=== PATIENT | male | born 1980 | race American Indian/Alaskan Native ===

== ENCOUNTER 2022-02-09 13:37 | Emergency (ER) | payer MEDICAID ==
--- NOTE | 2022-02-09 14:36 | Event Note ---
ED Screening Note ED Screening Note: sent from halfway "because eyes rolled back in my head since last Sunday. " no trip sheet or hx given denies substance use home psych meds per caregiver no hi no si no av halluc coooperative This initial assessment/diagnostic orders/clinical plan/treatment(s) is/are subject to change based on patients health status, clinical progression and re- assessment by fellow clinical providers in the ED. Further treatment and workup at subsequent clinical providers discretion. Patient/guardian urged not to elope from the ED as their condition may be serious if not clinically assessed and managed. Initial orders include: mhe ekg/qt eval will need to call halfway for more info
[2022-02-09 16:32] LABS: Basophils % (Auto) 1.2 % (0.0-1.8); Eosinophils # (Auto) 0.1 K/mm3 (0.0-0.4); Eosinophils % (Auto) 3.7 % (0.0-4.3); Hematocrit 41.2 % (35.5-45.6); Hemoglobin 13.3 gm/dl (11.8-15.2); Lymphocytes # (Auto) 1.1 K/mm3 (1.2-5.4); Lymphocytes % (Auto) 28.9 % (13.4-35.0); Mean Corpuscular HGB Conc 32 % (32-34); Mean Corpuscular Volume 91 fl (84-94); Monocytes # (Auto) 0.4 K/mm3 (0.0-0.8); Monocytes % (Auto) 9.2 % (0.0-7.3); Platelet Count 363 K/mm3 (140-440); Red Blood Count 4.51 M/mm3 (3.65-5.03); Red Cell Distribution Width 12.8 % (13.2-15.2)
[2022-02-09 16:54] LABS: Alanine Aminotransferase 11 units/L (7-56); Albumin 4.4 g/dL (3.9-5); BUN/Creatinine Ratio 6; Blood Urea Nitrogen 6 mg/dL (9-20); Calcium 9.1 mg/dL (8.4-10.2); Hemolysis Index 6
[2022-02-09 17:24] LABS: Creatine Kinase MB < 1.0 ng/mL (0.0-4.0)
--- NOTE | 2022-02-09 22:57 | Emergency Department Report ---
- General Chief complaint: Weakness Stated complaint: WEAKNESS Time Seen by Provider: 02/09/22 21:20 Source: patient Mode of arrival: Ambulatory Limitations: No Limitations - History of Present Illness Initial comments: pt presents to ed with gen weakness , pt reports his eyes rolls back in to his head no si or hi MD Complaint: generalized weakness -: Gradual Location: generalized Consistency: intermittent Improves with: none Associated Symptoms: denies: denies other symptoms, chest pain, confusion, dark stools, easy bruising, fever/chills, headaches, loss of appetite, rash, shortness of breath, syncope - Related Data Home Medications Medication Instructions Recorded Confirmed Last Taken FLUoxetine HCL [FLUoxetine] 40 mg PO QDAY 04/17/15 06/29/15 04/17/15 Ranitidine HCl [Ranitidine] 150 mg PO BID 04/17/15 06/29/15 04/17/15 ARIPiprazole [Abilify TAB] 10 mg PO QHS 06/29/15 06/29/15 Unknown Benztropine [Cogentin] 1 mg PO DAILY 06/29/15 06/29/15 Unknown Pantoprazole [Protonix] 40 mg PO DAILY 06/29/15 06/29/15 Unknown diphenhydrAMINE [Benadryl CAP] 50 mg PO QHS 06/29/15 06/29/15 Unknown Allergies Allergy/AdvReac Type Severity Reaction Status Date / Time No Known Allergies Allergy Verified 04/18/15 00:41 ED Review of Systems ROS: Stated complaint: WEAKNESS Other details as noted in HPI Constitutional: denies: chills, fever Eyes: denies: eye pain, eye discharge, vision change ENT: denies: ear pain, throat pain Respiratory: denies: cough, shortness of breath, wheezing Cardiovascular: denies: chest pain, palpitations Endocrine: no symptoms reported Gastrointestinal: denies: abdominal pain, nausea, diarrhea Genitourinary: denies: urgency, dysuria Musculoskeletal: denies: back pain, joint swelling, arthralgia Skin: denies: rash, lesions Neurological: denies: headache, weakness, paresthesias Psychiatric: denies: anxiety, depression Hematological/Lymphatic: denies: easy bleeding, easy bruising ED Past Medical Hx - Past Medical History Previous Medical History?: No Hx Hypertension: No Hx CVA: No Hx Psychiatric Treatment: (Not able to obtain history) Hx Asthma: Yes - Social History Smoking Status: Never Smoker Substance Use Type: None - Medications Home Medications: Home Medications Medication Instructions Recorded Confirmed Last Taken Type FLUoxetine HCL [FLUoxetine] 40 mg PO QDAY 04/17/15 06/29/15 04/17/15 History Ranitidine HCl [Ranitidine] 150 mg PO BID 04/17/15 06/29/15 04/17/15 History ARIPiprazole [Abilify TAB] 10 mg PO QHS 06/29/15 06/29/15 Unknown History Benztropine [Cogentin] 1 mg PO DAILY 06/29/15 06/29/15 Unknown History Pantoprazole [Protonix] 40 mg PO DAILY 06/29/15 06/29/15 Unknown History diphenhydrAMINE [Benadryl CAP] 50 mg PO QHS 06/29/15 06/29/15 Unknown History ED Physical Exam - General Limitations: No Limitations General appearance: alert, in no apparent distress - Head Head exam: Present: atraumatic, normocephalic - Eye Eye exam: Present: normal appearance - ENT ENT exam: Present: mucous membranes moist - Neck Neck exam: Present: normal inspection - Respiratory Respiratory exam: Present: normal lung sounds bilaterally. Absent: respiratory distress - Cardiovascular Cardiovascular Exam: Present: regular rate, normal rhythm. Absent: systolic murmur, diastolic murmur, rubs, gallop - GI/Abdominal GI/Abdominal exam: Present: soft, normal bowel sounds - Rectal Rectal exam: Present: deferred - Extremities Exam Extremities exam: Present: normal inspection - Back Exam Back exam: Present: normal inspection - Neurological Exam Neurological exam: Present: alert, oriented X3 - Psychiatric Psychiatric exam: Present: normal affect, normal mood - Skin Skin exam: Present: warm, dry, intact, normal color. Absent: rash ED Course Vital Signs 02/09/22 13:42 Temperature 97.8 F Pulse Rate 86 Respiratory 16 Rate Blood Pressure 130/90 [Left] O2 Sat by Pulse 98 Oximetry ED Medical Decision Making - Lab Data Result diagrams: 02/09/22 16:05 02/09/22 16:05 - Medical Decision Making work up neg , candice any si ro hi, vss no distress Critical care attestation.: If time is entered above; I have spent that time in minutes in the direct care of this critically ill patient, excluding procedure time. ED Disposition Clinical Impression: Weakness Disposition: 01 HOME / SELF CARE / HOMELESS Is pt being admited?: No Does the pt Need Aspirin: No Condition: Stable Referrals: CHADD CAIN MD [Primary Care Provider] - 3-5 Days
[2022-02-09 23:06] VITALS: BP 129/90
[2022-02-09 23:22] LABS: Mucus,Urine 3+ /HPF
[2022-02-09 23:23] LABS: Amphetamine Screen,Urine PRESUMPTIVE NEGATIVE; Benzodiazepines Screen,Urine PRESUMPTIVE NEGATIVE; Cannabinoid Screen,Urine PRESUMPTIVE NEGATIVE; Cocaine Screen,Urine PRESUMPTIVE NEGATIVE; Methadone Screen,Urine PRESUMPTIVE NEGATIVE; Opiate Screen,Urine PRESUMPTIVE NEGATIVE
[2022-02-09 23:56] LABS: Bilirubin,Urine Negative (Negative); Blood,Urine Negative (Negative); Color,Urine Amber (Yellow)
[2022-02-09 23:57] LABS: Protein,Urine <15 mg/dL mg/dL (Negative); RBC,Urine < 1.0 /HPF (0.0-6.0); Urobilinogen,Urine < 2.0 mg/dL (<2.0)
--- NOTE | 2022-02-10 11:43 | Electrocardiograph Report ---
[facility] Test Date: 2022-02-09 Test Time: 21:11:27 Pat Name: JERRY MONTANEZ Department: Room: Gender: M Director Environmental: KETAN : 1980 Requested By: BOBBY SCHWARTZ Order Number: [id number] Reading MD: Felipe hSell Measurements Intervals [place] Rate: 80 P: 39 ND: 138 QRS: 2 QRSD: 88 T: 35 QT: 372 QTc: 429 Interpretive Statements Sinus rhythm No previous ECG available for comparison Electronically Signed On 02-10-2022 11:42:41 EDT by Felipe Shell
== END 2022-02-09 23:06 | disposition home or self-care (01) ==
LOC: ED 13:37
DX: R53.1 Weakness (principal); J45.909 Unspecified asthma, uncomplicated; Z79.899 Other long term (current) drug therapy
CPT/HCPCS: 36415; 80053; 80307; 80320; 81001; 82550; 82553; 85025; 93005; 99283; G0480

== ENCOUNTER 2022-02-21 11:09 | Emergency (ER) | payer MEDICARE, MEDICAID ==
[2022-02-21 20:04] VITALS: BP 120/80
[2022-02-21 21:15] LABS: Basophils # (Auto) 0.1 K/mm3 (0.0-0.1); Basophils % (Auto) 1.4 % (0.0-1.8); Eosinophils # (Auto) 0.2 K/mm3 (0.0-0.4); Eosinophils % (Auto) 3.6 % (0.0-4.3); Hematocrit 38.4 % (35.5-45.6); Hemoglobin 12.8 gm/dl (11.8-15.2); Lymphocytes # (Auto) 1.3 K/mm3 (1.2-5.4); Lymphocytes % (Auto) 28.2 % (13.4-35.0); Mean Corpuscular HGB Conc 33 % (32-34); Mean Corpuscular Volume 91 fl (84-94); Monocytes # (Auto) 0.5 K/mm3 (0.0-0.8); Monocytes % (Auto) 10.6 % (0.0-7.3); Platelet Count 301 K/mm3 (140-440); Red Blood Count 4.21 M/mm3 (3.65-5.03); Red Cell Distribution Width 13.2 % (13.2-15.2)
[2022-02-21 21:17] LABS: Bilirubin,Urine NEG (Negative); Blood,Urine NEG (Negative); Color,Urine Yellow (Yellow); Mucus,Urine FEW /HPF; Protein,Urine <15 mg/dL mg/dL (Negative); RBC,Urine < 1.0 /HPF (0.0-6.0); Urobilinogen,Urine < 2.0 mg/dL (<2.0); WBC,Urine < 1.0 /HPF (0.0-6.0)
[2022-02-21 21:24] LABS: Amphetamine Screen,Urine Negative; Benzodiazepines Screen,Urine Negative; Cannabinoid Screen,Urine Negative; Cocaine Screen,Urine Negative; Methadone Screen,Urine Negative; Opiate Screen,Urine Negative
[2022-02-21 21:34] LABS: Alanine Aminotransferase 10 units/L (7-56); Albumin 4.3 g/dL (3.9-5); BUN/Creatinine Ratio 4; Blood Urea Nitrogen 4 mg/dL (9-20); Calcium 9.7 mg/dL (8.4-10.2); Hemolysis Index 7
--- NOTE | 2022-02-21 22:41 | Ultrasound Report ---
ULTRASOUND ABDOMEN, LIMITED (RIGHT UPPER QUADRANT) INDICATION / CLINICAL INFORMATION: epigastric pain. COMPARISON: None available. FINDINGS: PANCREAS: Visualized portion shows no significant abnormality. LIVER: No significant abnormality. GALLBLADDER: No significant abnormality. BILE DUCTS: No significant abnormality. Common bile duct measures 3 mm. FREE FLUID: None. ADDITIONAL FINDINGS: None. IMPRESSION: 1. No significant sonographic abnormality of the right upper quadrant. Signer Name: Joshua Powell MD Signed: 02/21/2022 10:36 PM Workstation Name: [id number]
--- NOTE | 2022-02-21 22:48 | XRay Report ---
XR abd series w cxr 1V INDICATION / CLINICAL INFORMATION: epigastric pain. COMPARISON: None available. FINDINGS: SUPPORT DEVICES: None. HEART / MEDIASTINUM: No significant abnormality. LUNGS / PLEURA: Lungs are clear. Costophrenic sulci are sharp. No pneumothorax. ABDOMEN: Nonobstructive bowel gas pattern. No pneumoperitoneum. ADDITIONAL FINDINGS: No significant additional findings. IMPRESSION: 1. No acute findings. 2. Nonobstructive bowel gas pattern. Signer Name: Joshua Powell MD Signed: 02/21/2022 10:43 PM Workstation Name: [id number]
--- NOTE | 2022-02-21 23:18 | Emergency Department Report ---
ED General Adult HPI - General Chief complaint: Psych Stated complaint: EYES ROLLING IN BACK OF HEAD Time Seen by Provider: 02/21/22 19:22 Source: patient Mode of arrival: Ambulatory Limitations: No Limitations - History of Present Illness Initial comments: Patient presents from his outpatient psych appointment with complaints of middle, upper abdominal pain, achy, non radiating, 5/10, not worsened or relieved by anything. Denies nausea, vomiting. Last BM was today and formed. Endorses flatulence. Denies dysuria, frequency, urgency. States it makes his eyes feel like they are rolling back. Denies suicidal and homicidal ideations, intent or plan. Denies visual and auditory hallucinations. Severity scale (0 -10): 0 - Related Data Home Medications Medication Instructions Recorded Confirmed Last Taken FLUoxetine HCL [FLUoxetine] 40 mg PO QDAY 04/17/15 06/29/15 04/17/15 Ranitidine HCl [Ranitidine] 150 mg PO BID 04/17/15 06/29/15 04/17/15 ARIPiprazole [Abilify TAB] 10 mg PO QHS 06/29/15 06/29/15 Unknown Benztropine [Cogentin] 1 mg PO DAILY 06/29/15 06/29/15 Unknown Pantoprazole [Protonix] 40 mg PO DAILY 06/29/15 06/29/15 Unknown diphenhydrAMINE [Benadryl CAP] 50 mg PO QHS 06/29/15 06/29/15 Unknown Allergies Allergy/AdvReac Type Severity Reaction Status Date / Time No Known Allergies Allergy Verified 02/21/22 11:22 ED Review of Systems ROS: Stated complaint: EYES ROLLING IN BACK OF HEAD Other details as noted in HPI Comment: All other systems reviewed and negative Constitutional: denies: chills, fever ED Past Medical Hx - Past Medical History Hx Hypertension: No Hx CVA: No Hx Psychiatric Treatment: (Not able to obtain history) Hx Asthma: Yes - Social History Smoking Status: Never Smoker Substance Use Type: None - Medications Home Medications: Home Medications Medication Instructions Recorded Confirmed Last Taken Type FLUoxetine HCL [FLUoxetine] 40 mg PO QDAY 04/17/15 06/29/15 04/17/15 History Ranitidine HCl [Ranitidine] 150 mg PO BID 04/17/15 06/29/15 04/17/15 History ARIPiprazole [Abilify TAB] 10 mg PO QHS 06/29/15 06/29/15 Unknown History Benztropine [Cogentin] 1 mg PO DAILY 06/29/15 06/29/15 Unknown History Pantoprazole [Protonix] 40 mg PO DAILY 06/29/15 06/29/15 Unknown History diphenhydrAMINE [Benadryl CAP] 50 mg PO QHS 06/29/15 06/29/15 Unknown History ED Physical Exam - General Limitations: No Limitations General appearance: alert, in no apparent distress - Head Head exam: Present: atraumatic, normocephalic - Eye Eye exam: Present: PERRL, EOMI - ENT ENT exam: Present: mucous membranes moist, other (airway patent) - Neck Neck exam: Present: other (supple; no JVD) - Respiratory Respiratory exam: Present: other (good airentry, nml I:E, CTAB; no use of WILLI) - Cardiovascular Cardiovascular Exam: Present: regular rate, normal rhythm. Absent: rubs, gallop - GI/Abdominal GI/Abdominal exam: Present: soft, normal bowel sounds. Absent: distended, tenderness, guarding - Extremities Exam Extremities exam: Present: full ROM. Absent: tenderness - Back Exam Back exam: Present: full ROM. Absent: tenderness - Neurological Exam Neurological exam: Present: alert, oriented X3, CN II-XII intact. Absent: motor sensory deficit - Psychiatric Psychiatric exam: Present: normal affect, other (no hallucinations; no obvious delusions). Absent: homicidal ideation, suicidal ideation - Skin Skin exam: Present: warm, dry ED Course Vital Signs 02/21/22 02/21/22 02/21/22 11:19 20:02 22:35 Temperature 97.6 F 98.5 F Pulse Rate 89 70 Respiratory 16 16 Rate Blood Pressure 114/81 Blood Pressure 120/80 [Left] O2 Sat by Pulse 99 99 98 Oximetry ED Medical Decision Making - Lab Data Result diagrams: 02/21/22 20:57 02/21/22 20:57 Laboratory Tests 02/21/22 02/21/22 02/21/22 20:48 20:48 20:57 WBC 4.8 RBC 4.21 Hgb 12.8 Hct 38.4 MCV 91 MCH 30 MCHC 33 RDW 13.2 Plt Count 301 Lymph % (Auto) 28.2 [place] % (Auto) 10.6 H Eos % (Auto) 3.6 Baso % (Auto) 1.4 Lymph # (Auto) 1.3 [place] # (Auto) 0.5 Eos # (Auto) 0.2 Baso # (Auto) 0.1 Seg Neutrophils % 56.2 Seg Neutrophils # 2.7 Sodium Potassium Chloride Carbon Dioxide Anion Gap BUN Creatinine Estimated GFR BUN/Creatinine Ratio Glucose Calcium Total Bilirubin AST ALT Alkaline Phosphatase Total Protein Albumin Albumin/Globulin Ratio Lipase Urine Color Yellow Urine Turbidity Clear Urine pH 6.0 Ur Specific [place] 1.016 Urine Protein <15 mg/dl Urine Glucose (UA) Neg Urine Ketones Neg Urine Blood Neg Urine Nitrite Neg Urine Bilirubin Neg Urine Urobilinogen < 2.0 Ur Leukocyte Esterase Neg Urine WBC (Auto) < 1.0 Urine RBC (Auto) < 1.0 Urine Mucus Few Salicylates Urine Opiates Screen Negative Urine Methadone Screen Negative Acetaminophen Ur Barbiturates Screen Negative Ur Phencyclidine Scrn Negative Ur Amphetamines Screen Negative U Benzodiazepines Scrn Negative Urine Cocaine Screen Negative U Marijuana (THC) Screen Negative Drugs of Abuse Note Disclamer Plasma/Serum Alcohol 02/21/22 02/21/22 02/21/22 20:57 20:57 20:57 WBC RBC Hgb Hct MCV MCH MCHC RDW Plt Count Lymph % (Auto) [place] % (Auto) Eos % (Auto) Baso % (Auto) Lymph # (Auto) [place] # (Auto) Eos # (Auto) Baso # (Auto) Seg Neutrophils % Seg Neutrophils # Sodium 138 Potassium 4.2 Chloride 101.9 Carbon Dioxide 24 Anion Gap 16 BUN 4 L Creatinine 1.0 Estimated GFR > 60 BUN/Creatinine Ratio 4 Glucose 119 H Calcium 9.7 Total Bilirubin 0.70 AST 13 ALT 10 Alkaline Phosphatase 69 Total Protein 7.3 Albumin 4.3 Albumin/Globulin Ratio 1.4 Lipase Urine Color Urine Turbidity Urine pH Ur Specific [place] Urine Protein Urine Glucose (UA) Urine Ketones Urine Blood Urine Nitrite Urine Bilirubin Urine Urobilinogen Ur Leukocyte Esterase Urine WBC (Auto) Urine RBC (Auto) Urine Mucus Salicylates < 0.3 L Urine Opiates Screen Urine Methadone Screen Acetaminophen 5.0 L Ur Barbiturates Screen Ur Phencyclidine Scrn Ur Amphetamines Screen U Benzodiazepines Scrn Urine Cocaine Screen U Marijuana (THC) Screen Drugs of Abuse Note Plasma/Serum Alcohol 02/21/22 02/21/22 20:57 21:14 WBC RBC Hgb Hct MCV MCH MCHC RDW Plt Count Lymph % (Auto) [place] % (Auto) Eos % (Auto) Baso % (Auto) Lymph # (Auto) [place] # (Auto) Eos # (Auto) Baso # (Auto) Seg Neutrophils % Seg Neutrophils # Sodium Potassium Chloride Carbon Dioxide Anion Gap BUN Creatinine Estimated GFR BUN/Creatinine Ratio Glucose Calcium Total Bilirubin AST ALT Alkaline Phosphatase Total Protein Albumin Albumin/Globulin Ratio Lipase 54 Urine Color Urine Turbidity Urine pH Ur Specific [place] Urine Protein Urine Glucose (UA) Urine Ketones Urine Blood Urine Nitrite Urine Bilirubin Urine Urobilinogen Ur Leukocyte Esterase Urine WBC (Auto) Urine RBC (Auto) Urine Mucus Salicylates Urine Opiates Screen Urine Methadone Screen Acetaminophen Ur Barbiturates Screen Ur Phencyclidine Scrn Ur Amphetamines Screen U Benzodiazepines Scrn Urine Cocaine Screen U Marijuana (THC) Screen Drugs of Abuse Note Plasma/Serum Alcohol < 0.01 RUQ US: no acute abnormality XR acute abd series: no acute cardiopulmonary process; nml bowel gas pattern; no free intraperitoneal air - Medical Decision Making possibly 2/2 PUD vs gastritis. Pancreatitis, UTI, basal pneumonia, biliary disease ruled out. No signs of hollow viscus perforation, SBO or other acute surgical abdomen @ this time. Critical care attestation.: If time is entered above; I have spent that time in minutes in the direct care of this critically ill patient, excluding procedure time. ED Disposition Clinical Impression: Epigastric pain Disposition: HOME / SELF CARE / HOMELESS Is pt being admited?: No Does the pt Need Aspirin: No Condition: Stable Additional Instructions: Return to the ER if your symptoms worsen. Referrals: JIMI DAVIES MD [Other] - 3-5 Days
--- NOTE | 2022-02-22 11:01 | Electrocardiograph Report ---
[facility] Test Date: 2022-02-21 Test Time: 22:27:50 Pat Name: JERRY MONTANEZ Department: Room: Gender: M Expediter Service Order: PRESTON : 1980 Requested By: TYRONE GILES Order Number: [id number] Reading MD: Romain Rocha Measurements Intervals [place] Rate: 72 P: 43 NM: 140 QRS: 86 QRSD: 91 T: 33 QT: 390 QTc: 427 Interpretive Statements Sinus rhythm Compared to ECG 02/09/2022 21:11:27 No significant changes Electronically Signed On 02-22-2022 11:00:42 EDT by Romain Rocha
== END 2022-02-21 23:43 | disposition home or self-care (01) ==
LOC: EEVIPCON 11:09 → ED 11:09
DX: R10.13 Epigastric pain (principal); J45.909 Unspecified asthma, uncomplicated; Z79.899 Other long term (current) drug therapy
CPT/HCPCS: 36415; 74022; 76705; 80053; 80307; 80320; 81001; 83690; 85025; 93005; 99285; G0480